=== PATIENT | male | born 1980 | race Hispanic/Latino ===

== ENCOUNTER 2023-07-31 16:25 | Emergency (ER) | payer OTHER, MEDICAID, SELFPAY ==
[2023-07-31] VITALS (24 sets, daily range): BP systolic 145–183; BP diastolic 79–102; PULSE 71–86; RESP 14–26; TEMP 36.9; O2SAT 96–98; BMI 35.5
--- NOTE | 2023-07-31 16:56 | PC.NURSE ---
This RN informed provider of patient CIWA of 17.
[2023-07-31] MEDS: SODIUM CHLORIDE 0.9% 1,000 ML 1000 ML IV ×2 (17:28→17:49)
[2023-07-31 17:30] LABS: Alanine Aminotransferase 62 IU/L (<50); Albumin 4.1 g/dL (3.5-5.0); Albumin Globulin Ratio 0.8 (1.0-2.8); Alkaline Phosphatase 88 U/L (38-126); Aspartate Aminotransferase 125 IU/L (17-59); Bilirubin Total 1.2 mg/dL (0.2-1.3); Calcium 8.5 mg/dL (8.4-10.2); Carbon Dioxide 27 mmol/L (22-32); Chloride 105 mmol/L (98-107); Estimated Glomerular Filt Rate > 60 mL/min (>60); Ethanol (ETOH) 21 mg/dL; Globulin 5.1 g/dL (1.7-4.1); Glucose 118 mg/dL (70-100); HEMOLYSIS < 15 (0-50); Potassium 3.7 mmol/L (3.4-5.1); Sodium 140 mmol/L (137-145); Total Protein 9.2 g/dL (6.3-8.2)
[2023-07-31 17:34] LABS: Add Manual Diff / Slide Review NO; Basophils Absolute Auto 0 /uL (0-100); Basophils Percent Auto 0.5 % (0-2); Eosinophils Absolute Auto 100 /uL (0-450); Eosinophils Percent Auto 1.9 % (2-4); Hematocrit 36.5 % (41-53); Hemoglobin 13.1 g/dL (13.5-17.5); Lymphocytes Absolute Auto 900 /uL (1100-4500); Lymphocytes Percent Auto 16.4 % (25-40); Mean Corpuscular HGB Conc 35.9 % (30-36); Mean Corpuscular Hemoglobin 34.8 PG (26-34); Mean Corpuscular Volume 96.9 fL (80-100); Monocytes Absolute Auto 500 /uL (0-900); Monocytes Percent Auto 8.9 % (3-14); Neutrophils Absolute Auto 3800 /uL (1500-7000); Neutrophils Percent Auto 72.3 % (50-75); Platelet Count 155 X10^3/uL (150-400); Red Blood Cell Count 3.77 X10^6/uL (4.5-5.9); White Blood Cell Count 5.2 X10^3/uL (4.5-11.0)
[2023-07-31] MEDS: PHENobarbital 65 MG/ML VIAL 130 MG IV (17:45)
[2023-07-31 17:48] LABS: BUN Creatinine Ratio 4.3 (6-22); Blood Urea Nitrogen 2 mg/dL (9-20)
--- NOTE | 2023-07-31 17:59 | ED_ITS ---
HPI - General Adult General Chief complaint: Toxicology Problem Stated complaint: feels dehydrated Time Seen by Provider: 07/31/23 16:56 Source: patient Mode of arrival: Ambulatory History of Present Illness HPI narrative: Patient is a 43-year-old male. Has a history of hepatitis-C. He states this is under control. He also has a history of opioid abuse. Is on Suboxone. Has not used opioids in the past year. Over the past year he has had an increase in his alcohol use. He states he drinks multiple hard liquor drinks in a day. He states it initially started to drink alcohol in order to help him sleep at night but it has now expanded into drinking most of the day. His last drink was this morning. He has had alcohol withdrawal symptoms in the past but has never had a seizure. He states he also has history of anxiety. He has been taking less of his prescribed Suboxone because he was concerned about taking the Suboxone with alcohol use. He was here in the emergency department today seeking detox. He states he is here because of his kids and he wants to stop drinking alcohol. He denies the use of any opioids in the past year. He denies any other illicit substances. Denies chest pain, shortness of breath, abdominal pain. Is having some nausea but no vomiting. Is also having some anxiety. Related Data Home Medications Medication Instructions Recorded Confirmed ACETAMINOPHEN (TYLENOL) 0 PO PRN ##0 11/10/05 Allergies Allergy/AdvReac Type Severity Reaction Status Date / Time No Known Drug Allergies Allergy Verified 07/31/23 16:51 Review of Systems Review of Systems Narrative: See HPI Patient History Social History Smoking Status: Former smoker Smoking Status: Former smoker alcohol intake frequency: 3 or more drinks per day Alcohol type: beer Substance Use Type: former substance user Exam Initial Vital Signs Initial Vital Signs: Vital Signs Temperature 98.4 F 07/31/23 16:44 Pulse Rate 84 07/31/23 16:44 Respiratory Rate 18 07/31/23 16:44 Blood Pressure 183/92 H 07/31/23 16:44 Pulse Oximetry 97 07/31/23 16:44 Oxygen Delivery Method Room Air 07/31/23 16:44 Const General: cooperative, comfortable, anxious and No frail appearing HENMT Head: normal to inspection and normocephalic Resp Effort & Inspection: normal respiratory effort Auscultation: clear to auscultation bilaterally Cardio Rate: regular rate Rhythm: regular rhythm GI Inspection: normal to inspection Skin General: no rashes or lesions noted Neuro General: patient alert, patient awake, patient oriented x3 and moves all extremities Extrem General: capillary refill normal Course Orders Ordered: ED Orders 07/31/23 17:05 CBC Auto Diff [Complete Blood Count AUTO DIFF] Stat CMP [Comprehensive Metabolic Panel] Stat Ethanol (ETOH) Stat Lipase Stat 07/31/23 17:38 [place] [facility] [place] [facility] [place] [facility] Stat 07/31/23 18:47 urine tox [Urine Drug Screen, Rapid] Stat Discontinued Medications Sodium Chloride (Normal Saline 0.9%) 1,000 mls @ 1,000 mls/hr IV BOLUS ONE Stop: 07/31/23 18:19 Last Infusion: 07/31/23 18:20 Dose: Infused Documented By: Admin: 07/31/23 17:28 Dose: 1,000 mls/hr Documented By: RAY Sodium Chloride (Normal Saline 0.9%) 1,000 mls @ 1,000 mls/hr IV BOLUS ONE Stop: 07/31/23 18:30 Last Infusion: 07/31/23 18:52 Dose: Infused Documented By: Admin: 07/31/23 17:49 Dose: 1,000 mls/hr Documented By: RAY Thiamine HCl 100 mg/ Sodium (Chloride) 101 mls @ 404 mls/hr IV NOW ONE Stop: 07/31/23 18:14 Last Infusion: 07/31/23 19:00 Dose: Infused Documented By: Admin: 07/31/23 18:43 Dose: 404 mls/hr Documented By: RAY Phenobarbital (Phenobarbital 65 Mg/Ml Vial) 130 mg IV NOW ONE Stop: 07/31/23 17:32 Last Admin: 07/31/23 17:45 Dose: 130 mg Documented By: RAY Vital Signs Vital signs: Vital Signs - 8 hr 07/31/23 16:44 07/31/23 16:57 07/31/23 16:59 Temperature 98.4 F Pulse Rate 84 83 Respiratory Rate 18 15 Blood Pressure 183/92 H 172/93 H Pulse Oximetry 97 96 Oxygen Delivery Method Room Air Room Air 07/31/23 17:00 07/31/23 17:00 07/31/23 17:15 Temperature Pulse Rate 83 85 Respiratory Rate 21 14 Blood Pressure 181/101 H Pulse Oximetry 97 96 Oxygen Delivery Method 07/31/23 17:15 07/31/23 17:30 07/31/23 17:30 Temperature Pulse Rate 77 Respiratory Rate 15 Blood Pressure 171/88 H 172/88 H Pulse Oximetry 96 Oxygen Delivery Method Room Air 07/31/23 17:45 07/31/23 17:45 07/31/23 18:00 Temperature Pulse Rate 78 85 Respiratory Rate 17 14 Blood Pressure 171/79 H Pulse Oximetry 97 96 Oxygen Delivery Method 07/31/23 18:01 07/31/23 18:01 07/31/23 18:15 Temperature Pulse Rate 86 Respiratory Rate 22 Blood Pressure 168/88 H 158/87 H Pulse Oximetry 96 Oxygen Delivery Method 07/31/23 18:15 07/31/23 18:30 07/31/23 18:30 Temperature Pulse Rate 71 78 Respiratory Rate 17 26 H Blood Pressure 170/102 H Pulse Oximetry 96 98 Oxygen Delivery Method 07/31/23 18:45 07/31/23 18:45 07/31/23 19:00 Temperature Pulse Rate 78 Respiratory Rate 22 Blood Pressure 162/86 H 168/93 H Pulse Oximetry 97 Oxygen Delivery Method 07/31/23 19:00 07/31/23 19:15 07/31/23 19:15 Temperature Pulse Rate 78 77 Respiratory Rate 18 16 Blood Pressure 159/91 H Pulse Oximetry 96 96 Oxygen Delivery Method Room Air 07/31/23 19:30 07/31/23 19:30 07/31/23 19:45 Temperature Pulse Rate 76 75 Respiratory Rate 16 16 Blood Pressure 163/92 H Pulse Oximetry 96 97 Oxygen Delivery Method 07/31/23 19:45 07/31/23 20:00 07/31/23 20:00 Temperature Pulse Rate 75 Respiratory Rate 16 Blood Pressure 173/94 H 169/93 H Pulse Oximetry 96 Oxygen Delivery Method 07/31/23 20:15 07/31/23 20:15 07/31/23 20:30 Temperature Pulse Rate 72 Respiratory Rate 19 Blood Pressure 169/97 H 173/101 H Pulse Oximetry 96 Oxygen Delivery Method 07/31/23 20:30 07/31/23 20:45 07/31/23 20:45 Temperature Pulse Rate 72 74 Respiratory Rate 17 14 Blood Pressure 166/97 H Pulse Oximetry 96 98 Oxygen Delivery Method 07/31/23 21:00 07/31/23 21:30 07/31/23 21:58 Temperature Pulse Rate 86 72 Respiratory Rate 20 18 Blood Pressure 153/88 H Pulse Oximetry 98 Oxygen Delivery Method Room Air 07/31/23 21:58 07/31/23 22:00 07/31/23 22:00 Temperature Pulse Rate 77 73 Respiratory Rate 18 22 Blood Pressure 145/87 H Pulse Oximetry 97 96 Oxygen Delivery Method Room Air Medical Decision Making Lab Data Lab results reviewed: Yes I reviewed the patient's lab results. 07/31/23 17:05 07/31/23 17:05 Labs: Lab Results 07/31/23 07/31/23 Range/Units 17:05 18:47 WBC 5.2 (4.5-11.0) X10^3/uL RBC 3.77 L (4.5-5.9) X10^6/uL Hgb 13.1 L (13.5-17.5) g/dL Hct 36.5 L (41-53) % MCV 96.9 (80-100) fL MCH 34.8 H (26-34) PG MCHC 35.9 (30-36) % RDW 15.0 H (11.6-14.8) % Plt Count 155 (150-400) X10^3/uL Neut % (Auto) 72.3 (50-75) % Lymph % (Auto) 16.4 L (25-40) % [place] % (Auto) 8.9 (3-14) % Eos % (Auto) 1.9 L (2-4) % Baso % (Auto) 0.5 (0-2) % Neut # (Auto) 3800 (3969-0158) /uL Lymph # (Auto) 900 L (1368-3939) /uL [place] # (Auto) 500 (0-900) /uL Eos # (Auto) 100 (0-450) /uL Baso # (Auto) 0 (0-100) /uL Sodium 140 (137-145) mmol/L Potassium 3.7 (3.4-5.1) mmol/L Chloride 105 (98-107) mmol/L Carbon Dioxide 27 (22-32) mmol/L BUN 2 L (9-20) mg/dL Creatinine 0.47 L (0.66-1.25) mg/dL Estimated GFR > 60 (>60) mL/min BUN/Creatinine Ratio 4.3 L (6-22) Glucose 118 H (70-100) mg/dL Calcium 8.5 (8.4-10.2) mg/dL Total Bilirubin 1.2 (0.2-1.3) mg/dL AST 125 H (17-59) IU/L ALT 62 H (<50) IU/L Alkaline Phosphatase 88 (38-126) U/L Total Protein 9.2 H (6.3-8.2) g/dL Albumin 4.1 (3.5-5.0) g/dL Globulin 5.1 H (1.7-4.1) g/dL Albumin/Globulin Ratio 0.8 L (1.0-2.8) Lipase 416 H (23-300) U/L U Opiates 300ng/mL cut Negative (Negative) Ur Oxycodone Screen Negative (Negative) Urine Methadone Screen Negative (Negative) Ur Barbiturates Screen Negative (Negative) U Tricyclic Antidepress Negative (Negative) Ur Phencyclidine Scrn Negative (Negative) Ur Amphetamines Screen Negative (Negative) U Methamphetamines Scrn Negative (Negative) Ur MDMA Scrn (Ecstasy) Negative (Negative) U Benzodiazepines Scrn Negative (Negative) Urine Cocaine Screen Negative (Negative) U Marijuana (THC) Screen Negative (Negative) Urine pH Normal (Normal) Urine Specific [place] Normal (Normal) Ethyl Alcohol 21 H ( - 10) mg/dL Ur Creatinine Normal (Normal) ECG Data Interpretation: Sinus rhythm Ventricular rate 84 Normal axis Normal QRS Normal QTC No ST T wave changes MDM Narrative Medical decision making narrative: Patient is medically cleared. He is having some anxiety. Unsure whether or not this is withdrawing from alcohol or his baseline anxiety however it is probably both. He was tolerating oral intake. UDS is negative. Patient is voluntary. He is clinically sober. Social work consulted. Will attempt to find month placement for alcohol use. Attempted multiple places to find placement however we have been unsuccessful due to various reasons. Patient stated that he would like to go home. He states he needs to go to work tomorrow and talk with his employer about he is long-term alcohol use and detox. We did potentially have a bed available at [facility] and I discuss this with the patient however he declined to pursue this further and would like to be discharged home. He was alert and oriented x3. Has a GCS of 15. Alcohol level is below legal limit. I do feel that he is capacity to make decisions. Patient was given return precautions. He expressed understanding and agreement. Discharge Plan Departure Patient Disposition: Home Clinical Impression: Alcohol use disorder Instructions: DI for Alcohol Use Disorder Activity Restrictions/Additional Instructions: I do think that you would benefit from an inpatient detox/treatment for your alcohol use. You have opted to go home and pursue this as an outpatient. You can return to the emergency department at any point if you change your mind. Prescriptions: No Action ACETAMINOPHEN (TYLENOL) 0 PO PRN Qty: 0 Stand Alone Forms: Patient Portal/API
[2023-07-31 18:02] LABS: Lipase 416 U/L (23-300)
[2023-07-31] MEDS: THIAMINE 100 MG in SODIUM CHLORIDE 0.9% 100 ML 404 MG IV (18:43)
[2023-07-31 19:07] LABS: UR Morphine/Opiate cutoff 300 Negative (Negative); Ur Creatinine Normal (Normal); Ur Specific Gravity Normal (Normal); Urine Amphetamines Negative (Negative); Urine Barbiturates Negative (Negative); Urine Benzodiazepines Negative (Negative); Urine Cocaine Negative (Negative); Urine MDMA Negative (Negative); Urine Methadone Negative (Negative); Urine Methamphetamines Negative (Negative); Urine Oxycodone Negative (Negative); Urine Phencyclidine Negative (Negative); Urine Tetrahydrocannabinol Negative (Negative); Urine Tricyclic Antidepressant Negative (Negative); Urine pH Normal (Normal)
--- NOTE | 2023-07-31 21:11 | PC.NURSE ---
pt eating a sandwich and gonsalo dory. states he feels a little anxious and has some nausea. wants to go home and work tomorrow.
== END 2023-07-31 22:03 | disposition home or self-care (01) ==
PROVIDERS: Emergency Medicine; Emergency Provider Emergency Medicine
DX: F10.90 Alcohol use, unspecified, uncomplicated (principal); F41.9 Anxiety disorder, unspecified; Y90.1 Blood alcohol level of 20-39 mg/100 ml; R03.0 Elevated blood-pressure reading, without diagnosis of hypertension
CPT/HCPCS: 36415; 80053; 80305; 80320; 83690; 85025; 93005; 96365; 96375; 99284; J2560